=== PATIENT | female | born 1955 | race Caucasian/White ===

== ENCOUNTER 2016-12-21 09:58 | Outpatient (CLI) ==
[2016-12-21 10:26] LABS: BASOPHILS % (AUTO) 0.3 % (0.0-3.0); EOSINOPHILS # (AUTO) 0.1 K/ul (0.0-0.7); EOSINOPHILS % (AUTO) 2.3 % (0.0-7.0); HEMATOCRIT 41.4 % (37.0-47.0); HEMOGLOBIN 13.9 g/dl (12.0-16.0); IMMATURE GRANULOCYTE % (AUTO) 0.3 % (0.0-5.0); LYMPHOCYTES % (AUTO) 32.7 (10.0-50.0); MEAN CORPUSCULAR HEMOGLOBIN 29.1 pg (27.0-31.0); MEAN CORPUSCULAR HGB CONC 33.6 (31.8-35.4); MEAN CORPUSCULAR VOLUME 86.8 fl (81.0-99.0); MONOCYTES # (AUTO) 0.5 K/uL (0.4-2.0); MONOCYTES % (AUTO) 7.6 (0-10); NEUTROPHILS # (AUTO) 3.4 K/ul (2.0-6.9); NEUTROPHILS % (AUTO) 56.8; PLATELET COUNT 221 10^3/uL (140-440); RED BLOOD COUNT 4.77 10^6/ul (4.20-5.40); WHITE BLOOD COUNT 6.02 K/ul (4.6-10.2)
[2016-12-21 11:04] LABS: ALBUMIN 3.8 g/dL (3.4-5.0); ALBUMIN/GLOBULIN RATIO 1.09; ANION GAP 14.9; BILIRUBIN,TOTAL 0.69 mg/dL (0.00-1.20); BUN/CREATININE RATIO 18.98; CALCIUM 9.7 mg/dL (8.2-10.2); CREATININE 0.79 mg/dL (0.60-1.30); POTASSIUM 3.9 mmol/L (3.5-5.10); TOTAL PROTEIN 7.3 g/dL (6.4-8.2)
== END 2016-12-21 09:59 | disposition home or self-care (01) ==
LOC: LAB 09:58
PROVIDERS: ATTEND Family Medicine
DX: I10 Essential (primary) hypertension (principal); E78.5 Hyperlipidemia, unspecified; Z00.00 Encounter for general adult medical examination without abnormal findings
CPT/HCPCS: 36415; 80053; 80061; 82306; 84443; 85025; 86803

== ENCOUNTER 2018-09-22 15:43 | Outpatient (CLI) | payer OTHER ==
--- NOTE | 2018-09-23 08:42 | DI ---
EXAM: Left knee three-view HISTORY: Left knee pain COMPARISON: None FINDINGS: No fracture or dislocation. Small tricompartmental osteophytes. Medial, lateral, patello femoral compartment normal in height. No joint effusion. Patellar tendon enthesopathy. IMPERSSION: Mild tricompartmental osteoarthritis.
== END 2018-09-22 15:44 | disposition home or self-care (01) ==
LOC: RAD 15:43
PROVIDERS: ATTEND Family Medicine
DX: M25.562 Pain in left knee (principal); M25.561 Pain in right knee; G89.29 Other chronic pain

== ENCOUNTER 2018-09-29 08:54 | Outpatient (CLI) ==
--- NOTE | 2018-09-29 10:32 | MRI ---
EXAM: MRI left knee without contrast. HISTORY: Pain. Knee giving out after twisting. No left knee surgery reported.. TECHNIQUE: Using a local extremity coil on a high field strength magnet multiplanar multisequence MR I was performed of the left knee without intravenous or intra-articular gadolinium contrast. FINDINGS: I have reviewed the patient's three-view plain film examination left knee 09/22/2018 showi ng tricompartmental osteoarthrosis with questionable loose body seen more anterior at the joint line. Within the medial compartment the medial meniscus is intact without discrete surfacing meniscal tear. The medial compartment cartilage congruent without underlying subchondral edema. Early productive osteophyte formation. Within the lateral compartment lateral meniscus is intact without discrete surfacing meniscal tear. The lateral compartment cartilage relatively congruent without focal underlying subchondral edema. E leann productive osteophyte formation. Within the patellofemoral compartment the patella seated, somewhat high-riding. Patellar chondrosis/ chondromalacia patella with generalized cartilage attenuation and surface irregularity. 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 Productive osteophyte formation. Physiologic amount of fluid left knee joint. Correlate 8 mm loose body anterior intercondylar notch. Intact ACL and PCL ligamentous fibers. The extensor mechanism is intact. The medial collateral li gament as well as lateral collateral ligament complex and posterolateral corner intact.. IMPRESSION: No discrete surfacing meniscal tear identified. Changes of tricompartmental osteoarthrosis, patellofemoral compartment dominant. Patella somewhat hi gh-riding. Physiologic amount of fluid left knee. 8mm loose body anterior intercondylar notch. Intact cruciate and collateral ligaments.
== END 2018-09-29 08:55 | disposition home or self-care (01) ==
LOC: RAD 08:54
PROVIDERS: ATTEND Family Medicine
DX: M25.562 Pain in left knee (principal)